=== PATIENT | female | born 1995 | race Caucasian/White ===

== ENCOUNTER 2017-12-13 09:35 | Emergency (ER) | payer OTHER ==
[~2017-12-13] VITALS: Ht 160 cm; Wt 50.0 kg
[2017-12-13 09:40] VITALS: BP 103/71; PULSE 87; RESP 16; TEMP 98.1; O2SAT 97
[2017-12-13 10:11] VITALS: BP 99/64; PULSE 85; RESP 18; O2SAT 100
[2017-12-13 10:19] VITALS: BP_SYST 120; BP_SYST 99; BP_DIAS 62; BP_DIAS 64; BP_DIAS 69; RESP 16; RESP 18; RESP 20
[2017-12-13] MEDS ORDERED: SODIUM CHLOR 0.9% 1000 ML INJ 1,000 ML IV ONE ×2 (10:45→13:30)
--- NOTE | 2017-12-13 10:48 | PD ---
HPI . Near syncope Chief Complaint: Syncope/Near-Syncope Time Seen by Provider: 09:51 Travel History International Travel<30 days: No Contact w/Intl Traveler<30days: No Traveled to known affect area: No History of Present Illness HPI This patient presents with a chief complaint of near syncope. She has had heavy vaginal bleeding for the last several days. She states she had an IUD placed about a month ago and that she has had intermittent spotting since that time. The bleeding became heavy 3 days ago and she had a near syncope today. The near syncopal sensation is exacerbated by standing. PFSH Past Medical History Diabetes: No Diminished Hearing: No Tetanus Vaccination: Unknown Influenza Vaccination: Yes ?: Not LMP: CURRENTLY : 1 Para: 1 Miscarriage: 0 : 0 Ectopic : No Ovarian Cysts: No Dilation and Curettage (D&C): No Tubal Ligation: No Past Surgical History Section: Yes (2014) Genitourinary Surgery: Yes () Hysterectomy: No Social History Alcohol Use: No Tobacco Use: No Substance Use: No Allergies-Medications (Allergen,Severity, Reaction): Coded Allergies: No Known Allergies (Unverified , 12/13/17) Review of Systems Except as stated in HPI: all other systems reviewed are Neg Physical Exam Narrative GENERAL: Awake and alert and in no acute distress. SKIN: Warm and dry. Normal color and turgor. HEAD: Normocephalic/atraumatic. EYES: Pupils are equal. Extraocular movements are intact. NECK: Normal range of motion. Supple. CARDIOVASCULAR: Regular rate and rhythm. RESPIRATORY: Nonlabored respirations. Normal sats. : Moderate blood in the vaginal vault. Cervical loss is closed. No cervical motion tenderness. Positive right adnexal tenderness. The string of the IUD is visible coming from the cervical os. MUSCULOSKELETAL: Atraumatic. Normal muscle tone. NEUROLOGICAL: A and O 3. Nonfocal. PSYCHIATRIC: Appropriate mood and affect. Data Data Last Documented VS Vital Signs Date Time Temp Pulse Resp B/P (MAP) Pulse Ox O2 Delivery O2 Flow Rate FiO2 12/13/17 15:34 68 18 137/74 (95) 77 18 133/90 (104) 124 18 150/83 (105) 12/13/17 14:17 98 Room Air 12/13/17 09:40 98.1 Orders Orders Ed Urine Pregnancytest Poc (12/13/17 09:52) Complete Blood Count With Diff (12/13/17 09:52) Orthostatic Vital Signs (12/13/17 09:52) Sodium Chlor 0.9% 1000 Ml Inj (Ns 1000 M (12/13/17 10:45) Gc And Chlamydia Pcr (12/13/17 10:48) Wet Prep Profile (12/13/17 10:48) Us Pelvis Comp Biomedical Scientist/Non-Preg (12/13/17 10:54) Ceftriaxone Inj (Rocephin Inj) (12/13/17 11:00) Lidocaine 1% Inj (50 Ml) (Xylocaine 1% I (12/13/17 11:00) Orthostatic Vital Signs (12/13/17 11:55) Sodium Chlor 0.9% 1000 Ml Inj (Ns 1000 M (12/13/17 13:30) Lidocaine Pf 1% Inj (Xylocaine-Mpf 1% In (12/13/17 14:08) Orthostatic Vital Signs (12/13/17 15:21) Labs Laboratory Tests Test 12/13/17 10:27 12/13/17 10:54 White Blood Count 5.3 TH/MM3 Red Blood Count 5.12 MIL/MM3 Hemoglobin 14.9 GM/DL Hematocrit 43.9 % Mean Corpuscular Volume 85.8 FL Mean Corpuscular Hemoglobin 29.0 PG Mean Corpuscular Hemoglobin Concent 33.8 % Red Cell Distribution Width 13.5 % Platelet Count 146 TH/MM3 Mean Platelet Volume 8.5 FL Neutrophils (%) (Auto) 68.5 % Lymphocytes (%) (Auto) 18.4 % Monocytes (%) (Auto) 12.5 % Eosinophils (%) (Auto) 0.2 % Basophils (%) (Auto) 0.4 % Neutrophils # (Auto) 3.6 TH/MM3 Lymphocytes # (Auto) 1.0 TH/MM3 Monocytes # (Auto) 0.7 TH/MM3 Eosinophils # (Auto) 0.0 TH/MM3 Basophils # (Auto) 0.0 TH/MM3 CBC Comment DIFF FINAL Differential Comment Clue Cells (Wet Prep) NONE SEEN Vaginal Trichomonas (Wet Prep) NONE SEEN Vaginal Yeast (Wet Prep) NONE SEEN Chlamydia trachomatis DNA (PCR) NOT DETECTED Neisseria gonorrhoeae DNA (PCR) NOT DETECTED MDM Medical Decision Making Medical Screen Exam Complete: Yes Emergency Medical Condition: Yes Differential Diagnosis Differential diagnosis of vaginal bleeding includes but is not limited to dysfunctional uterine bleeding, normal menstrual cycle, ectopic , spontaneous AB, PID. Narrative Course This patient presents with heavy vaginal bleeding now associated with near syncope. Orthostatic vital signs are positive. She is receiving a fluid bolus. CBC is in process. CBC Diagram 12/13/17 10:27 This patient is still orthostatic following 1 L of fluid. She will be given a second liter and her orthostatics will be rechecked. Following 2 L of fluid, she is no longer orthostatic. 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 She will be treated for presumed infection causing her abnormal bleeding. She was given Rocephin here. She will be discharged with doxycycline. Diagnosis Primary Impression: Vaginal bleeding Additional Impression: Orthostasis Patient Instructions: Dysfunctional Uterine Bleeding (DC), General Instructions Additional Instructions: Follow-up with your credit union field examiner in 2 days Med/Other Pt SpecificInfo: Prescription(s) given Scripts Doxycycline Hyclate (Doxycycline Hyclate) 100 Mg Cap 100 MG PO BID for Infection, #20 CAP 0 Refills Prov: Ciera Nevarez MD 12/13/17 Disposition: 01 DISCHARGE HOME Condition: Stable Ciera Nevarez MD Dec 13, 2017 10:47
[2017-12-13 10:52] LABS: AUTOMATED NEUTROPHIL # 3.6 TH/MM3 (1.8-7.7); BASOPHIL % 0.4 % (0.0-2.0); EOSINOPHIL % 0.2 % (0.0-4.0); HEMATOCRIT 43.9 % (35.0-46.0); HEMOGLOBIN 14.9 GM/DL (11.6-15.3); LYMPH % 18.4 % (9.0-44.0); MEAN CELL VOLUME 85.8 FL (80.0-100.0); MEAN CORPUSCULAR HGB CONC 33.8 % (32.0-36.0); MEAN PLATELET VOLUME 8.5 FL (7.0-11.0); MONO % 12.5 % (0.0-8.0); MONOCYTE # 0.7 TH/MM3 (0-0.9); NEUT % 68.5 % (16.0-70.0); PLATELET COUNT 146 TH/MM3 (150-450); RED BLOOD COUNT 5.12 MIL/MM3 (4.00-5.30); RED CELL DISTRIBUTION WIDTH 13.5 % (11.6-17.2); WHITE BLOOD COUNT 5.3 TH/MM3 (4.0-11.0)
[2017-12-13] MEDS ORDERED: LIDOCAINE HCL 1% 50 ML VIAL XX ONE (11:00)
[2017-12-13] MEDS ORDERED: cefTRIAXone 250 MG VIAL IM ONE (11:00)
--- NOTE | 2017-12-13 12:16 | RADRPT ---
EXAM DATE: 12/13/2017 12:02 PM EDT AGE/SEX: 22 years / Female INDICATIONS: Heavy vaginal bleeding for 4 day with fever. Status post IUD placement 3 weeks ago. CLINICAL DATA: This is the patient's initial encounter. Patient reports that signs and symptoms have been present for 4 - 6 days and indicates a pain score of 0/10. MEDICAL/SURGICAL HISTORY: None. section. IUD placement. COMPARISON: No prior exams available for comparison. MEASUREMENTS: Uterus:__9.0 x 6.6 x 4.0 cm Endometrial Stripe:__3 mm Right Ovary:__ 3.1 x 2.2 x 1.6 cm Left Ovary:__ 3.8 x 2.3 x 1.9 cm FINDINGS: Uterus: The myometrium has homogeneous echotexture without mass. There is an IUD in place in the en dometrial cavity. Right Ovary: Measures Left Ovary: Measures Other: No free fluid. CONCLUSION: IUD in the endometrial cavity. The uterus and ovaries appear otherwise normal. Electronically signed by: René Donis MD 12/13/2017 12:15 PM EDT
[2017-12-13] MEDS ORDERED: LIDOCAINE HCL 1% PF 30 ML VIAL ONE (14:08)
[2017-12-13 14:17] VITALS: BP 133/77; PULSE 70; RESP 18; O2SAT 98
[2017-12-13 15:34] VITALS: BP_SYST 133; BP_SYST 137; BP_SYST 150; BP_DIAS 74; BP_DIAS 83; BP_DIAS 90; RESP 18
[2017-12-13] MEDS ORDERED: DOXY100C PO (15:55)
== END 2017-12-13 17:21 | disposition home or self-care (01) ==
LOC: NEPC 09:35
DX: N93.9 Abnormal uterine and vaginal bleeding, unspecified (principal)
CPT/HCPCS: 76856; 84703; 85025; 87210; 87491; 87591; 99284; J7030